=== PATIENT | male | born 1980 | race Caucasian/White ===

== ENCOUNTER 2018-08-26 14:30 | Outpatient (RCR) | payer OTHER, SELFPAY ==
--- NOTE | 2018-06-22 10:56 | HP.PTEVAL_ITS ---
Patient's Visit Information LOC SOMMER is a 38 year old M referred to Physical Therapy by TEAGAN JACKSON with a diagnosis of L greater tubercle fracture of L shoulder with ORIF. Date of Evaluation: 06/20/18 Physical Therapist: Omid Gill DPT - Visit Plan Frequency: 2-3x /Week Duration: 8 weeks Plan: Start with PROM of L shoulder, mobilizations throughout with distractions. Add in end range stretching fro HEP inclucing pullies. Stressed frequncy of stretching with patient. Pt. consnts. - Subjective Findings: Pt. is here today for his initial evaluation with diagnosis of L greater tubercle fracture of L shoulder with ORIF. Pt. works as in [employer] and has been off since initial injuiry. Pt. is now ready to begin PT. Pt has surgery on 03/16/08. Pt. reprots no pain at rest, but has increased pain with attempts to move his arm. Pt. denies N/T in either UE. Pt is no longer in his sling. Pt. is to follow up with natividad tomorrow. Pt. reports having no restrictions at this point in time. Pt. is hopeful to get back to all recreational and work activities without limitations. - Pain L shoulder Pain Intensity (Out of 10): 0 Pain Intensity Range: 0, 4 Comment: increases with movement - Objective POSTURE: Pt.has equal shoulder heights. Pt. has L arm is slight gaurded posture. PALPATION: Pt. has no tenderness to palpation of L shoulder. Tightness noted in L lats and UT. NEURO: normal throughout, 2+ DTR triceps and biceps. ROM: PROM: L shoulder- flexion 96deg, abd 82deg, ER 5deg at side. AROM ~60deg flexion and abduction. MMT: elbow 5/5 throughuot. shoulder not test.. RUE 5/5 throughout. - Goals Goal 1:: Pt. to be I with HEP. Goal Time Frame: 4-6 Weeks Goal 2:: Pt. to have increased L shoulder PROM to full. Goal Time Frame: 4-6 Weeks Goal 3:: Pt. to have increased AROM to full withotu increase in symptoms. Goal Time Frame: 4-6 Weeks Goal 4:: Pt. to sleep without increase in symptoms. Goal Time Frame: 4-6 Weeks Goal 5:: Pt. to have increased L shoulder strength to 4/5 througout without increase insymptoms allowing for increased toelrance with all work related activities. Goal Time Frame: 6-8 Weeks Goal 6:: Pt. to resume all work related activities without limitations. Goal Time Frame: 4-6 Weeks - Rehabilitation Potential Physical Therapy Diagnosis: Pt. has signs and symptoms consistent with L greater tubercle fracture of L shoulder with ORIF. Pt. has hypomiblity with any movements over head. Pt. is limited with shoulder height with all mobility. Pt. would benefit from PT to increase his ROM in order to tolerate all work related activiies. Rehabilitation Potential: Good - Anticipated Interventions Patient/Client Instruction: Educate patient on: Condition, Plan of Care, Risk Factors, Benefits of Fitness Program For the Purpose of:: To facilitate caregiver knowledge, To improve self management, To prevent re-injury, To improve ability to perform tasks related to life management, To improve tolerance to ADL's Therapeutic Exercise to Include: Strength training, Power training, Endurance training, Postural training, Flexibilty training, Passive ROM, Active ROM, Scapular Strength/Stabilization For the Purpose of:: To decrease pain, To increase ROM, To improve nutrient delivery to tissue, To increase oxygenation perfusion, To improve muscle performance and motor function, To improve ability to perform ADL's, To improve health of tissue, To decrease soft tissue restriction, To increase flexibility/ROM Cryotherapy (ice pack, ice massage): Yes Thermo therapy (hot pack): Yes For the Purpose of:: To decrease pain, To increase ROM Thank you for the opportunity to evaluate your patient. For Medicare and Medicare HMO plans, please review the plan of care and approve it. It will need to be FAXED BACK to us at [phone] for Medicare purposes. For Medicare only, by signing this I certify the plan of care. Please let me know if there are questions or concerns regarding this plan of care. Physician Signature: Date:
--- NOTE | 2018-08-29 08:00 | HP.PTDCSUM ---
HP - PT D/C Summary It has been my pleasure to treat LOC SMOMER under orders from TEAGAN JACKSON, for the diagnosis of L greater tubercle fracture of L shoulder with ORIF 03/16/18 for a total of 15 visit(s). Discharge Date: 08/26/18 Please see the following information for a summary of their discharge status. - Subjective Subjective: Pt. reports good tolerance to last PT. Pt. reprots no new issues. Pt. reports being 75% better overall, but continues to have a lot of difficulty with reaching overhead. Pt. reports no pain at rest. - Pain L shoulder Pain Intensity (Out of 10): 0 - Overall Improvement % Improvement: 75 - Objective Objective/Function: AROM: L shoulder- flexion 140deg, abd 138deg, functioanl ER C1, functional IR L5. PROM- flexion 150deg, abd 143deg, ER at 90deg 55deg, IR at 90deg 40deg. PT. has increased pain at end ranges of all motions with firm end feel. Pt. has 4+/5 strength in available ROM. Pt. continues to have adhesive capsulitis signs with any overhead elevation motions. - Goals Goal 1:: Pt. to be I with HEP. Goal Progress: Goal Met Goal 2:: Pt. to have increased L shoulder PROM to full. Goal Progress: Progressing Goal 3:: Pt. to have increased AROM to full withotu increase in symptoms. Goal Progress: Progressing Goal 4:: Pt. to sleep without increase in symptoms. Goal Progress: Goal Met Goal 5:: Pt. to have increased L shoulder strength to 4/5 througout without increase insymptoms allowing for increased toelrance with all work related activities. Goal Progress: Goal Met Goal 6:: Pt. to resume all work related activities without limitations. Goal Progress: Progressing - Plan Plan: I would recommend that this patient have a NAVJOT to gain lost end ranges of motions inorder to allow for full function and ability to compelte all work related actviites. Pt. to follow up with physician at this point in time. - D/C Information Discharge Comments: Pt. to return to physician at this point in time. Pt. has progressed with end range stretching both passively and AROM of motions. Pt. continues to lack end ranges of motion, consistent with capsular patterns. Pt. would possibly benefit from NAVJOT to increase ROM. Pt. to follow up with physician at this point in time. If there are questions or concerns regarding this patient's physical therapy, please feel free to call me at [phone]. Thank you for the referral of this patient. Sincerely, CAMILLE AlegriaT
== END 2018-08-26 19:00 | disposition home or self-care (01) ==
LOC: PT 14:30
DX: S42.142 Displaced fracture of glenoid cavity of scapula, left shoulder (principal); S42.252D Displaced fracture of greater tuberosity of left humerus, subsequent encounter for fracture with routine healing
CPT/HCPCS: 97110; 97140; 97161; 97530

== ENCOUNTER 2018-12-07 10:00 | Outpatient (RCR) | payer OTHER, SELFPAY ==
--- NOTE | 2018-10-10 07:47 | HP.PTEVAL_ITS ---
Patient's Visit Information LOC SOMMER is a 38 year old M referred to Physical Therapy by TEAGAN JACKSON with a diagnosis of L shoulder lysis of adhesisions and NAVJOT. Date of Evaluation: 10/07/18 Physical Therapist: Omid Gill DPT - Visit Plan Frequency: 2-3x /Week Duration: 8 weeks Plan: Start with agressive PROM and joint mobilization throughout shoulder ROM. Progress HEP with focus on end range stretching, high frequency. - Subjective Findings: Pt. is here today for his initial evalution with diagnosis of L shoulder lysis of adhesisions and NAVJOT. Pt. originally had and ORIF of his L shoulder after injury. He had his second surgery yesterday. He arrived in sling with report the nerve block is wearing off. Pt. reports no N/T and no fever/chills. Pt. has been having some difficulty with sleeping, but is expected. Pt. works in [employer] and will have to be lifting heavier objects including over head activities. Pt. is to see physician again next week. Pt. is hopeful to increase ROM and strength in order to get back to all work related activities without issues. - Pain L shoulder Pain Intensity (Out of 10): 4 Pain Intensity Range: 2, 8 - Objective POSTURE: L shoulder in guarded posture, normal shouler heights. Pt. has normal cervical positioning with slight FH posture. PALPATON: Pt. has increased tenderness along anterior aspect of his shoulder and subacromial space. Pt. has no pain throughout scapula or UT. NEURO: normal throughout. ROM: AROM: L shoulder- flexion 75deg, abd 60deg, functional ER external auditory meatus, functional IR: greater trochanter. PROM: flexion 165deg, abd 160deg, ER at 70deg of abd 70deg, IR at 30deg of abd 40deg. Pt. has increased pain with all endranges of motion. MMT: RUE: 5/5 throughout, did not add over pressure to L shoulder- otherwise 5/5. - Goals Goal 1:: Pt. to be I with HEP. Goal Time Frame: 4-6 Weeks Goal 2:: Pt. to have increased L shoulder PROM to full throughout without increase in symptoms. Goal Time Frame: 2-4 Weeks Goal 3:: Pt. to have full AROM of L shoulder without increase in symptoms. Goal Time Frame: 4-6 Weeks Goal 4:: Pt. to have increased L shoulder strength to atleast 4+/5 throughout without incerase in symptoms. Goal Time Frame: 6-8 Weeks Goal 5:: Pt. to sleep throughout the night without issues. Goal Time Frame: 2-4 Weeks Goal 6:: Pt. to resume all work related activities without limitaitons. Goal Time Frame: 6-8 Weeks - Rehabilitation Potential Physical Therapy Diagnosis: Pt. has signs and symptom consistent with L shoulder lysis of adhesisions and NAVJOT. Pt. would benefit from agressive ROM progressing to AAROM, AROM as tolerated. Add in frequent stretching for HEP and stress importance of compliance/follow through. Rehabilitation Potential: Excellent - Anticipated Interventions Patient/Client Instruction: Educate patient on: Condition, Plan of Care, Risk Factors, Benefits of Fitness Program For the Purpose of:: To improve decision making, To facilitate caregiver knowledge, To improve self management, To prevent re-injury, To improve ability to perform tasks related to life management, To improve tolerance to ADL's Therapeutic Exercise to Include: Strength training, Power training, Body mechanics, Postural training, Flexibilty training, Passive ROM, Active ROM For the Purpose of:: To decrease pain, To decrease swelling/inflammation, To increase ROM, To improve nutrient delivery to tissue, To increase oxygenation perfusion, To improve muscle performance and motor function, To improve ability to perform ADL's, To improve performance and independence with ADL's, To decrease soft tissue restriction, To increase flexibility/ROM Manual Therapy Techniques to Include: Mobilization, Passive ROM, Soft tissue mobilization For the Purpose of:: To decrease pain, To decrease swelling/inflammation, To increase ROM, To decrease soft tissue restriction, To increase flexibility/ROM Cryotherapy (ice pack, ice massage): Yes Thermo therapy (hot pack): Yes For the Purpose of:: To decrease pain, To decrease swelling/inflammation, To increase ROM, To improve nutrient delivery to tissue, To increase oxygenation perfusion, To decrease soft tissue restriction, To increase flexibility/ROM Thank you for the opportunity to evaluate your patient. For Medicare and Medicare HMO plans, please review the plan of care and approve it. It will need to be FAXED BACK to us at [phone] for Medicare purposes. For Medicare only, by signing this I certify the plan of care. Please let me know if there are questions or concerns regarding this plan of care. Physician Signature: Date:
--- NOTE | 2018-12-07 11:15 | HP.PTDCSUM_ITS ---
HP - PT D/C Summary It has been my pleasure to treat LOC SOMMER under orders from TEAGAN JACKSON, for the diagnosis of L shoulder lysis of adhesisions and NAVJOT for a total of 22 visit(s). Discharge Date: 12/07/18 Please see the following information for a summary of their discharge status. - Subjective Subjective: Pt. reprots being 95% better overall. Pt. reports no pain this date. Pt. is returing back to work next week. - Pain L shoulder Pain Intensity (Out of 10): 0 - Overall Improvement % Improvement: 95 - Objective Objective/Function: ROM: PROM: L shoulder- flexion 175deg, abd 173deg, ER at 9d0eg 88deg, IR at 90deg 50deg. AROM: flexion 170deg, abd 170deg, functional ER C6, functioanl IF T12. MMT: L shoulder- flexon 4+/5, abd 4+/5, ext 5/5, ER 5- /5, IR 5/5, elbow- flexion- 5/5, ext 5/5. Pt. has close to full ROM and imrpoved strength. At this point i ntime he is independent with his HEP and ready to be DC to HEP and released back to physician as tolerated. - Goals Goal 1:: Pt. to be I with HEP. Goal Progress: Goal Met Goal 2:: Pt. to have increased L shoulder PROM to full throughout without increase in symptoms. Goal Progress: Goal Met Goal 3:: Pt. to have full AROM of L shoulder without increase in symptoms. Goal Progress: Goal Met Goal 4:: Pt. to have increased L shoulder strength to atleast 4+/5 throughout without incerase in symptoms. Goal Progress: Goal Met Goal 5:: Pt. to sleep throughout the night without issues. Goal Progress: Goal Met Goal 6:: Pt. to resume all work related activities without limitaitons. Goal Progress: Goal Met - Plan Plan: Pt. to be DC to HEP at this point in time. - D/C Information Discharge Comments: Pt. progressedw ith end range stretching and progression with strengthening and RPE. Pt. reprots no pain with his L shoulder with all mobility and strengthening. He does notice some popping at his SC joint with overhead motions, but is progessing. Pt. is scheduled to return to work on Wednesday, 12/13. Pt. si to return to physician in Dec. Pt. will be Dc from PT at this point intime. If there are questions or concerns regarding this patient's physical therapy, please feel free to call me at [phone]. Thank you for the referral of this patient. Sincerely, CAMILLE AlegriaT
== END 2018-12-07 19:00 | disposition home or self-care (01) ==
LOC: PT 10:00
DX: Z98.890 Other specified postprocedural states (principal)
CPT/HCPCS: 97110; 97161; 97530

== ENCOUNTER 2020-07-08 11:22 | Emergency (ER) | payer SELFPAY ==
[2020-07-08 11:23] VITALS: BP 161/110; PULSE 125; RESP 18; TEMP 35.3; O2SAT 98; BMI 27.6
--- NOTE | 2020-07-08 14:18 | ED.VISSUMM ---
- ER Visit Summary Date of Service: 07/08/20 Chief Complaint: Sore throat History of Present Illness: The patient is a 40 M who presents with a sore throat for the past 2 days. Patient states it feels like it is scratchy. Patient states it is worse with swallowing. Patient states it seemed to get better when he drank coffee. Patient states he noted white exudates on his tonsils today. Patient states he had a fever of 102 at home. Patient denies any cough. Patient admits to some nausea and vomiting. Patient also admits to some myalgias. Patient also admits to headache and feeling weak. Physical Examination: Vital signs are stable except for an elevated blood pressure of 161/110 and a tachycardia of 125. Patient is afebrile here. Patient is in no acute distress. Oral mucosa is pink and moist. Oropharynx is erythematous. There are exudates noted on the tonsils bilaterally. Neck is supple. Trachea is midline. There is no JVD. I do not appreciate any anterior cervical lymphadenopathy. Heart was regular rate and rhythm. Lungs are clear and equal bilaterally. Abdomen is soft. Bowel sounds are normal. There is no tenderness. Cranial nerves II through XII are intact. There are no focal motor or sensory deficits noted. Test Results: Strep and COVID-19 rapid antigen were obtained and were negative. Emergency Department Course and Treatment: Patient met 3 out of 4 Centor criteria. Patient was pulling away when I was trying to obtain the strep culture. This may lead to a false negative. Patient was given a prescription for Pen-Vee K. Patient was instructed to follow-up with his primary care physician in 5 to 7 days. Patient understood and was agreeable with the plan. All questions were answered. Disposition: Discharge home Impression: Pharyngitis This note was generated with [employer] dictation software. It may contain incorrect words, spelling, and punctuation that were not noted in review of the chart prior to signing ED Disposition - Plan for ED Patient: Disposition: Home or Assisted Living Diagnosis: Pharyngitis Instructions: ED Pharyngitis, Report Pending Prescriptions: Penicillin V Potassium 500 mg PO 4X/DAY #40 tablet Penicillin V Potassium 500 mg PO 4X/DAY #40 tablet Prescription Printed Referrals: Jairo Morrison DO [STAFF PHYSICIAN] - 5-7 Days
[2020-07-08 15:04] VITALS: BP 141/109; PULSE 78; RESP 15; O2SAT 98
[2020-07-08] MEDS: Penicillin Vk 250 MG Tablet 500 MG PO (15:04)
== END 2020-07-08 15:06 | disposition home or self-care (01) ==
PROVIDERS: Emergency Provider Emergency Medicine
DX: J02.9 Acute pharyngitis, unspecified (principal); R11.2 Nausea with vomiting, unspecified; R53.1 Weakness; R51.9 Headache, unspecified; F17.200 Nicotine dependence, unspecified, uncomplicated
CPT/HCPCS: 87077; 87426; 87880; 99283